=== PATIENT | female | born 1950 | race Caucasian/White ===

== ENCOUNTER 2025-05-09 19:29 | Emergency (ER) | payer OTHER, MEDICARE ==
[~2025-05-09] VITALS: Ht 157.5 cm; Wt 59.0 kg
[2025-05-09 19:38] VITALS: BP 140/67; PULSE 83; RESP 18; TEMP 36.8; O2SAT 97
== END 2025-05-09 23:06 | disposition home or self-care (01) ==
LOC: ER 19:29
DX: S50.311A Abrasion of right elbow, initial encounter (principal); I10 Essential (primary) hypertension; Z86.73 Personal history of transient ischemic attack (TIA), and cerebral infarction without residual deficits; W18.30XA Fall on same level, unspecified, initial encounter; Y93.89 Activity, other specified; Y92.89 Other specified places as the place of occurrence of the external cause; Y99.8 Other external cause status
CPT/HCPCS: 71045; 72170; 73030; 73080; 73560; 99284